=== PATIENT | female | born 1960 | race Caucasian/White ===

== ENCOUNTER 2020-12-28 05:18 | Day surgery (SDC) | payer OTHER ==
[~2020-12-28] VITALS: Ht 157.5 cm; Wt 56.2 kg
[~2020-12-28 05:18] MED LIST: BUSPAR5 MG PO; EFFEXOR75 MG PO; ESTRACE 0.0142.5 GM VG; NEURONTIN 300300 MG PO; TRAZODONE HCL50 MG PO; ZENPEP PO
[2020-12-28 05:42] LABS: BASOPHILS 0.3 % (0-2); EOSINOPHILS 2.4 % (0-7); HEMATOCRIT 40.7 % (36.0-48.0); HEMOGLOBIN 13.5 g/dL (12-16); LYMPHOCYTES 28.4 % (15-50); MCH 29.9 pg (26.0-34.0); MCHC 33.1 g/dL (31.0-37.0); MCV 90.5 fL (80.0-100.0); MEAN PLATELET VOLUME 7.7 fL (7.4-10.4); MONOCYTES 6.7 % (2-11); NEUTROPHILS 62.2 % (40-80); PLATELET COUNT 221 10x3/uL (130-400); RDW 13.1 % (11.5-14.5); WBC 9.1 10x3/uL (4.8-10.8)
[2020-12-28 06:14] VITALS: BP 158/86; Ht 157.5 cm; Wt 56.2 kg
--- NOTE | 2020-12-28 11:05 | NUR ---
PT DISCHARGED VIA W/C, ACCOMPANIED BY KEKE, TO POV WITH FAMILY DRIVING. ALL BELONGINGS WITH FAMILY/PT.
== END 2020-12-28 11:05 | disposition home or self-care (01) ==
LOC: D.OPS 05:18
PROVIDERS: Anesthesiology; ATTEND Obstetrics & Gynecology Maternal & Fetal Medicine
DX: N81.4 Uterovaginal prolapse, unspecified (principal); N39.3 Stress incontinence (female) (male); N94.10 Unspecified dyspareunia; N39.41 Urge incontinence; N81.6 Rectocele; R10.2 Pelvic and perineal pain